=== PATIENT | female | born 1980 | race African-American/Black ===

== ENCOUNTER 2017-07-02 12:15 | Observation (INO) | payer OTHER ==
[2017-07-02] MEDS ORDERED: NS 1,000 ML IV ONE ×2 (12:49→12:55)
[2017-07-02] MEDS ORDERED: ONDANSETRON 4 MG/2 ML VIAL IVP ONE ×2 (12:49→17:08)
--- NOTE | 2017-07-02 12:56 | EDPHY ---
H & P Stated Complaint: seen last night dx with gastritis, Nause and abd pain worse Time Seen by Provider: 07/02/17 12:52 HPI/ROS: CHIEF COMPLAINT: Worsening abdominal pain, nausea and vomiting HISTORY OF PRESENT ILLNESS: The patient presents the ED with worsening abdominal pain and intractable vomiting. The patient was seen in the emergency department last night. She had a workup included a noncontrast CT scan of the abdomen pelvis and laboratory studies which are unremarkable. The working diagnosis yesterday was gastritis/gastroenteritis. She was discharged home with a prescription for Zofran. She reports she has had ongoing vomiting not alleviated with Zofran. She continues to complain of moderate left upper quadrant epigastric pain. She denies fever, cough or congestion. She denies dysuria. Her past surgical history was significant for hemorrhoidectomy. REVIEW OF SYSTEMS: A comprehensive 10 point review of systems is otherwise negative aside from elements mentioned in the history of present illness. Source: Patient - Personal History LMP (Females 10-55): 22-28 Days Ago Current Tetanus Diphtheria and Acellular Pertussis (TDAP): Unsure - Medical/Surgical History Hx Asthma: No Hx Chronic Respiratory Disease: No Hx Diabetes: No Hx Cardiac Disease: No Hx Renal Disease: No Hx Cirrhosis: No Hx Alcoholism: No Hx HIV/AIDS: No Hx Splenectomy or Spleen Trauma: No Other PMH: Degenerative disc disease L1 to S3 - Social History Smoking Status: Never smoked - Physical Exam Exam: General Appearance: Alert, mild discomfort secondary to pain Eyes: Pupils equal and round no pallor or injection ENT, Mouth: Mucous membranes moist Respiratory: There are no retractions, lungs are clear to auscultation Cardiovascular: Regular rate and rhythm Gastrointestinal: Tenderness to palpation epigastrium and left upper quadrant Neurological: A&O, normal motor function, normal sensory exam, normal cranial nerves Skin: Warm and dry, no rashes Musculoskeletal: Neck is supple nontender Extremities: symmetrical, full range of motion Constitutional: Initial Vital Signs Temperature (C) 37.2 C 07/02/17 12:27 Heart Rate 75 07/02/17 12:27 Respiratory Rate 20 07/02/17 12:27 Blood Pressure 140/96 H 07/02/17 12:27 O2 Sat (%) 100 07/02/17 12:27 O2 Delivery Mode Room Air Allergies/Adverse Reactions: shellfish Allergy (Severe, Uncoded 06/10/14 09:04) Home Medications: Medication Instructions Recorded Pregabalin [Lyrica 50mg (RX)] 50 mg PO BID 06/10/14 traMADol [Ultram] 50 mg PO Q4 06/10/14 Ondansetron Odt [Zofran Odt] 4 mg PO Q4PRN PRN #20 tab 07/01/17 Medical Decision Making - Diagnostics Imaging Results: Imaging Impressions Abdomen CT 07/02/17 13:03 Impression: 1. Nonspecific 19 mm left adnexal cyst if clinically indicated pelvic ultrasound may be helpful. 2. Prominent enhancement of the sigmoid colon vasa recta. This could potentially indicate colitis. Is there any diarrhea or hematochezia? Results called and discussed with Akil Collins, at 07/02/2017 15:00 General information for patients regarding this examination can be found at [email or web address]. If you have questions or comments about this report, please contact me at [phone] (hospital) or [phone] (cell). ED Course/Re-evaluation: The patient presents to the ED with intractable vomiting and ongoing left upper quadrant pain. The patient had an IV established. She has a history of shellfish allergy and a mild reaction to contrast in the past which she described as nausea. The patient was premedicated with Benadryl. She received Solu-Medrol. She received IV Ativan, Zofran and Phenergan for management of her nausea. The patient was taken for CT scan of the abdomen pelvis which demonstrates no acute perforation or obstruction. She does have some questionable mild colitis noted in her sigmoid which does not correspond particularly to her area of tenderness. The patient was re-evaluated at 4:40 p.m.. She has continued to complain of ongoing nausea. Her vomiting is better. She is having ongoing abdominal pain. Given the persistence and severity of her symptoms I do feel she needs to be admitted to the hospital for IV fluid hydration and symptomatic management. Consultation was made with Dr. Singh at 4:45 p.m. from the hospitalist service. He will admit the patient. Differential Diagnosis: Differential diagnosis considered includes diverticulitis, perforation, obstruction, pancreatitis, peptic ulcer disease, gastroenteritis - Data Points Laboratory Results: Laboratory Results 07/02/17 12:48 07/02/17 12:48 07/02/17 07/02/17 12:48 12:48 WBC 5.24 10^3/uL 10^3/uL (3.80-9.50) RBC 4.58 10^6/uL 10^6/uL (4.18-5.33) Hgb 11.6 g/dL L g/dL (12.6-16.3) Hct 36.5 % L % (38.0-47.0) MCV 79.7 fL L fL (81.5-99.8) MCH 25.3 pg L pg (27.9-34.1) MCHC 31.8 g/dL L g/dL (32.4-36.7) RDW 16.2 % H % (11.5-15.2) Plt Count 303 10^3/uL 10^3/uL (150-400) MPV 11.0 fL fL (8.7-11.7) Neut % (Auto) 79.5 % H % (39.3-74.2) Lymph % (Auto) 14.5 % L % (15.0-45.0) [place] % (Auto) 5.0 % % (4.5-13.0) Eos % (Auto) 0.0 % L % (0.6-7.6) Baso % (Auto) 0.8 % % (0.3-1.7) Nucleat RBC Rel Count 0.0 % % (0.0-0.2) Absolute Neuts (auto) 4.17 10^3/uL 10^3/uL (1.70-6.50) Absolute Lymphs (auto) 0.76 10^3/uL L 10^3/uL (1.00-3.00) Absolute Monos (auto) 0.26 10^3/uL L 10^3/uL (0.30-0.80) Absolute Eos (auto) 0.00 10^3/uL L 10^3/uL (0.03-0.40) Absolute Basos (auto) 0.04 10^3/uL 10^3/uL (0.02-0.10) Absolute Nucleated RBC 0.00 10^3/uL 10^3/uL (0-0.01) Immature Gran % 0.2 % % (0.0-1.1) Immature Gran # 0.01 10^3/uL 10^3/uL (0.00-0.10) Sodium 142 mEq/L mEq/L (134-144) Potassium 3.5 mEq/L mEq/L (3.5-5.2) Chloride 105 mEq/L mEq/L (97-110) Carbon Dioxide 22 mEq/l mEq/l (22-31) Anion Gap 15 mEq/L mEq/L (8-16) BUN 8 mg/dL mg/dL (7-23) Creatinine 0.8 mg/dL mg/dL (0.6-1.0) Estimated GFR > 60 Glucose 106 mg/dL H mg/dL (70-100) Calcium 9.9 mg/dL mg/dL (8.5-10.4) Total Bilirubin 0.3 mg/dL D mg/dL (0.1-1.4) Conjugated Bilirubin 0.1 mg/dL mg/dL (0.0-0.5) Unconjugated Bilirubin 0.2 mg/dL mg/dL (0.0-1.1) AST 20 IU/L IU/L (14-46) ALT 28 IU/L IU/L (9-52) Alkaline Phosphatase 50 IU/L IU/L (38-126) Total Protein 8.0 g/dL g/dL (6.3-8.2) Albumin 4.8 g/dL g/dL (3.5-5.0) Lipase 135 IU/L IU/L (23-300) Medications Given: Discontinued Medications Diphenhydramine HCl (Benadryl Injection) 50 mg IVP EDNOW ONE Stop: 07/02/17 12:59 Last Admin: 07/02/17 13:20 Dose: 50 mg Sodium Chloride (Ns) 1,000 mls @ 0 mls/hr IV ONCE ONE PRN Reason: Wide Open Stop: 07/02/17 12:50 Last Admin: 07/02/17 12:52 Dose: 1,000 mls Sodium Chloride (Ns) 1,000 mls @ 0 mls/hr IV EDNOW ONE; Wide Open PRN Reason: Protocol Stop: 07/02/17 12:56 Last Admin: 07/02/17 13:19 Dose: 1,000 mls Lorazepam (Ativan Injection) 1 mg IVP EDNOW ONE Stop: 07/02/17 13:08 Last Admin: 07/02/17 13:20 Dose: 1 mg Methylprednisolone Sodium Succinate (Solu-Medrol) 125 mg IVP EDNOW ONE Stop: 07/02/17 13:00 Last Admin: 07/02/17 13:20 Dose: 125 mg Ondansetron HCl (Zofran) 4 mg IVP EDNOW ONE Stop: 07/02/17 12:50 Last Admin: 07/02/17 12:52 Dose: 4 mg Promethazine HCl (Phenergan) 12.5 mg IVP EDNOW ONE Stop: 07/02/17 13:36 Last Admin: 07/02/17 13:41 Dose: 12.5 mg Departure - Departure Disposition: [facility] Inpatient Acute Clinical Impression: Abdominal pain, Vomiting Condition: Good Referrals: Lauren Gustafson MD [Primary Care Provider] - As per Instructions
[2017-07-02] MEDS ORDERED: methylPREDNISolone SOD SUCC 125 MG/2 ML VIAL IVP ONE (12:59)
[2017-07-02 13:01] LABS: % IMMATURE GRANULYOCYTES 0.2 % (0.0-1.1); ABSOLUTE IMMATURE GRANULOCYTES 0.01 10^3/uL (0.00-0.10); ADD DIFF? NO; ADD MORPH? NO; ADD SCAN? NO; ATYPICAL LYMPHOCYTE FLAG 0 (0-99); FRAGMENT RBC FLAG 20 (0-99); HEMATOCRIT 36.5 % (38.0-47.0); HEMOGLOBIN 11.6 g/dL (12.6-16.3); LEFT SHIFT FLG 0 (0-99); LIPEMIA HEMOLYSIS FLAG 80 (0-99); MEAN CELL HEMOGLOBIN 25.3 pg (27.9-34.1); MEAN CELL HEMOGLOBIN CONCENTR. 31.8 g/dL (32.4-36.7); MEAN CELL VOLUME 79.7 fL (81.5-99.8); PLATELET CLUMPS FLAG 0 (0-99); PLATELET COUNT 303 10^3/uL (150-400); RED BLOOD CELL COUNT 4.58 10^6/uL (4.18-5.33); RED CELL DISTRIBUTION WIDTH 16.2 % (11.5-15.2)
[2017-07-02] MEDS ORDERED: LORazepam 2 MG/ML INJ IVP ONE (13:07)
[2017-07-02 13:13] LABS: ALANINE AMINOTRANSFERASE 28 IU/L (9-52); ALBUMIN 4.8 g/dL (3.5-5.0); ALKALINE PHOSPHATASE 50 IU/L (38-126); ANION GAP 15 mEq/L (8-16); ASPARTATE AMINOTRANSFERASE 20 IU/L (14-46); BILIRUBIN,TOTAL 0.3 mg/dL (0.1-1.4); BILIRUBIN-CONJUGATED 0.1 mg/dL (0.0-0.5); BILIRUBIN-UNCONJUGATED 0.2 mg/dL (0.0-1.1); CALCIUM 9.9 mg/dL (8.5-10.4); CARBON DIOXIDE 22 mEq/l (22-31); CHLORIDE 105 mEq/L (97-110); CREATININE 0.8 mg/dL (0.6-1.0); GLOMERULAR FILTRATION RATE > 60; GLUCOSE 106 mg/dL (70-100); POTASSIUM 3.5 mEq/L (3.5-5.2); SODIUM 142 mEq/L (134-144)
[2017-07-02] MEDS ORDERED: PROMETHAZINE HCL 25 MG/ML INJ IVP ONE (13:35)
[2017-07-02] MEDS ORDERED: IOPAMIDOL (ISOVUE-300) 100 ML BTL ONE (13:50)
[2017-07-02] MEDS ORDERED: ONDANSETRON DISINTEGRATING 4 MG TAB PO PRN (17:25)
[2017-07-02] MEDS ORDERED: ACETAMINOPHEN 325 MG TAB PO PRN (17:25)
[2017-07-02] MEDS ORDERED: LORazepam 0.5 MG TAB PO PRN (17:25)
[2017-07-02] MEDS ORDERED: ONDANSETRON 4 MG/2 ML VIAL IVP PRN (17:25)
[2017-07-02] MEDS: NS W/ 20 KCl/L 1,000 ML IV SCH (18:07)
[2017-07-02] MEDS: PROMETHAZINE HCL 25 MG/ML INJ IVP PRN (19:56)
[2017-07-02] MEDS ORDERED: traMADol 50 MG TAB PO PRN (20:24)
[2017-07-02] MEDS: HYDROmorphone HCL/NS/PF 0.4 MG/2 ML SYR IVP PRN (20:29)
--- NOTE | 2017-07-02 21:10 | GHP ---
[f rep st] HISTORY AND PHYSICAL DATE OF ADMISSION: 07/02/2017 CHIEF COMPLAINT: Diarrhea, nausea, vomiting. HISTORY OF PRESENT ILLNESS: The patient is a 37-year-old female with past medical history of chronic low back pain who presented on 2 occasions to the [facility] emergency room with com plaints of diarrhea, nausea, and vomiting. Her primary complaint is the nausea and vomiting as the d iarrhea, she states, has resolved, and she has not had a bowel movement in the past 24 hours. She wa s prescribed Zofran which has not helped her nausea or vomiting. She has associated fevers and chill s as well. She states the symptoms started about 48 hours ago. Her daughter has also had nausea and vomiting as well but no diarrhea. The patient has not been on any antibiotics recently other than w hat was administered for hemorrhoid surgery she had earlier this month. She has not traveled out of the country over the past 2-3 months, but states she was in [facility] for a couple of months over the summer time. She does state that her children had a singing event and, after the event, there wa s some food available where she had some fruit and vegetables. She stated after she ingested these s he started to have the above-listed symptoms. Yesterday, she had a CT scan of her abdomen without co ntrast as she has a listed allergy to shellfish. This showed a small amount of nonspecific free flui d in the pelvis. This evening she had a CT scan with contrast, but was pretreated for her allergy. This showed enhancement of the sigmoid colon, which could indicate colitis. There was no evidence of diverticulosis or diverticulitis seen. The gallbladder was noted to be normal without any biliary d uct dilatation. No free air was seen. No evidence of a small bowel obstruction noted either. I sujata schroeder also mention that there was no blood seen within the stools. PAST MEDICAL HISTORY: Chronic low back pain secondary to degenerative disk disease. PAST SURGICAL HISTORY: Toe surgery when she was a teenager and recent hemorrhoid surgery. MEDICATIONS: 1. Lyrica. 2. Tramadol. 3. Zanaflex, dosing unconfirmed at the current time. ALLERGIES: Shellfish. SOCIAL HISTORY: The patient is . She has 3 children. She is a nonsmoker. FAMILY HISTORY: Dad is . He from chronic kidney disease. Mother is currently living b ut has history of heart disease. REVIEW OF SYMPTOMS: CONSTITUTIONAL: Positive for subjective fevers and chills. ENT: No recent upp er respiratory illnesses. CARDIOVASCULAR: No complaints of chest pains, palpitations, or syncopal e pisodes. RESPIRATORY: No complaints of shortness of breath or productive cough. : No complaints of difficulty with urination or burning with urination. NEUROLOGIC: No complaints of headaches or focal weakness. HEMATOLOGIC: No history of deep vein thrombosis or pulmonary embolism. PSYCHIATRIC : No history of anxiety or depression. ENDOCRINE: No history of diabetes or hypothyroidism. SKIN: No concerning skin rashes. MUSCULOSKELETAL: No complaints of any focal joint pains or swelling. PHYSICAL EXAM: VITAL SIGNS: Temperature 37.2, blood pressure 140/96, heart rate 113, respirations 2 0, satting 98% on room air. GENERAL: Patient appears mildly distressed. She is conversant, but mil dly distressed secondary to abdominal discomfort. HEENT: Extraocular movements intact. Pupils equa l. No scleral icterus is noted. NECK: No thyroid enlargement appreciated. CHEST: Clear on auscul tation. Normal respiratory effort. HEART: Regular. No murmurs appreciated. ABDOMEN: Tender at t he epigastrium with palpation. Bowel sounds are normal. Nondistended. : No Calderon catheter in pl anshul. EXTREMITIES: No significant pitting edema. NEUROLOGIC: Cranial nerves 2-12 appear intact. LABS: White blood cell count 5, hemoglobin 11, platelets 303. Sodium is 142, potassium 3.5, chlorid e 105, bicarb 22, BUN 8, creatinine 0.8, glucose of 106. Liver function tests within normal limits. IMAGING: CT scan abdomen and pelvis with contrast showing nonspecific 19 mm left adnexal cyst. If c linically indicated, pelvic ultrasound may be helpful, prominent enhancement of the sigmoid colon vas a recta. This could potentially indicate colitis. Is there any diarrhea or hematochezia? ASSESSMENT/PLAN: 1. Nausea and vomiting, presuming infectious source considering the concurrent diarrhea. She has no t had adequate relief with Zofran at this point in time. We will try Phenergan, continue with IV flu ids, and reassess in the morning. 2. Diarrhea. This has now resolved, but suspicious for an infectious presentation, and we will orde r for a GI pathogen panel should she, in fact, have any more diarrhea to see if we can isolate an inf ectious cause. The diarrhea has been nonbloody. 3. Chronic low back pain. We will include for p.r.n. tramadol for now if she is able to tolerate. 4. Deep venous thrombosis prophylaxis: Lovenox. 5. Disposition: I am hopeful her symptoms will be time limited. We will admit her under observatio n status. /[id number]/MODL
[2017-07-03] MEDS: HYDROmorphone HCL/NS/PF 0.4 MG/2 ML SYR IVP PRN ×4 (00:34→14:16)
[2017-07-03] MEDS: NS W/ 20 KCl/L 1,000 ML IV SCH (02:15)
[2017-07-03] MEDS: PROMETHAZINE HCL 25 MG/ML INJ IVP PRN ×2 (02:30→10:14)
[2017-07-03 04:35] VITALS: O2SAT 96
[2017-07-03 05:34] LABS: % IMMATURE GRANULYOCYTES 0.2 % (0.0-1.1); ABSOLUTE IMMATURE GRANULOCYTES 0.01 10^3/uL (0.00-0.10); ADD DIFF? NO; ADD MORPH? NO; ADD SCAN? NO; ATYPICAL LYMPHOCYTE FLAG 10 (0-99); FRAGMENT RBC FLAG 20 (0-99); HEMATOCRIT 28.3 % (38.0-47.0); HEMOGLOBIN 8.7 g/dL (12.6-16.3); LEFT SHIFT FLG 0 (0-99); LIPEMIA HEMOLYSIS FLAG 80 (0-99); MEAN CELL HEMOGLOBIN 24.2 pg (27.9-34.1); MEAN CELL HEMOGLOBIN CONCENTR. 30.7 g/dL (32.4-36.7); MEAN CELL VOLUME 78.6 fL (81.5-99.8); MEAN PLATELET VOLUME 10.9 fL (8.7-11.7); PLATELET CLUMPS FLAG 0 (0-99); PLATELET COUNT 234 10^3/uL (150-400); RED CELL DISTRIBUTION WIDTH 16.2 % (11.5-15.2)
[2017-07-03 05:46] LABS: ALANINE AMINOTRANSFERASE 26 IU/L (9-52); ALBUMIN 2.8 g/dL (3.5-5.0); ALKALINE PHOSPHATASE 32 IU/L (38-126); ANION GAP 9 mEq/L (8-16); ASPARTATE AMINOTRANSFERASE 12 IU/L (14-46); BILIRUBIN,TOTAL 0.1 mg/dL (0.1-1.4); CALCIUM 8.8 mg/dL (8.5-10.4); CARBON DIOXIDE 20 mEq/l (22-31); CHLORIDE 113 mEq/L (97-110); CREATININE 0.8 mg/dL (0.6-1.0); GLOMERULAR FILTRATION RATE > 60; GLUCOSE 88 mg/dL (70-100); MAGNESIUM 1.9 mg/dL (1.6-2.3); POTASSIUM 3.8 mEq/L (3.5-5.2); SODIUM 142 mEq/L (134-144); TOTAL PROTEIN 5.1 g/dL (6.3-8.2)
[2017-07-03] MEDS ORDERED: NON-FORMULARY NEW DRUG (Tizanidine Hcl [Zanaflex] 4 MG) PO PRN (07:44)
--- NOTE | 2017-07-03 08:26 | HOSPPROG ---
Hospitalist Progress Note Assessment/Plan: Patient is a 37-year-old female with a history of chronic low back pain. She has presented on 2 occasions to [facility] with complaints of diarrhea, nausea and vomiting. She had a CT scan of her abdomen without contrast this showed nonspecific free fluid in the pelvis. Subsequently she had a CT scan with contrast and was pretreated for allergy. This showed enhancement of the sigmoid colon which could indicate colitis. Today is my 1st encounter with the patient. Chart reviewed. * nausea and vomiting and diarrhea -supportive care at this time -GI pathogen ordered but has had no further diarrhea * chronic low back pain -P.r.n. tramadol * anemia -she had a drop in her hemoglobin hematocrit but it could possibly be delusional -recheck -patient states she has had ongoing anemia for years * 19 mm left adnexal cyst -she get followup in the outpatient setting and evaluation via a pelvic ultrasound *Plan: trial of clear liquids after evaluation of her h/h, if stable, will dc home Subjective: Hillary is feeling much better during my evaluation Objective: Vital Signs Temp Pulse Resp BP Pulse Ox 37.0 C 68 14 99/58 L 96 07/03/17 07:24 07/03/17 07:24 07/03/17 07:24 07/03/17 07:24 07/03/17 07:24 Laboratory Results 07/03/17 05:11 07/03/17 05:11 07/02/17 07/03/17 07/04/17 05:59 05:59 05:59 Intake Total 2000 Output Total 800 Balance 1200 - Physical Exam Constitutional: no apparent distress, appears nourished, not in pain Eyes: PERRL Ears, Nose, Mouth, Throat: hearing normal Cardiovascular: regular rate and rhythym Respiratory: no respiratory distress Gastrointestinal: normoactive bowel sounds, soft, non-tender abdomen Skin: warm, normal color Musculoskeletal: full muscle strength Neurologic: AAOx3 Psychiatric: interacting appropriately ICD10 Worksheet Patient Problems: Problems Problem Status Onset Abdominal pain Acute Vomiting Acute
[2017-07-03] MEDS ORDERED: PREGABALIN 150 MG CAP PO SCH (09:00)
[2017-07-03] MEDS ORDERED: ENOXAPARIN 40 MG/0.4 ML SYR SC SCH (09:00)
[2017-07-03 10:58] LABS: HEMOGLOBIN 9.3 g/dL (12.6-16.3)
[2017-07-03 11:06] VITALS: BP 106/71; PULSE 71; RESP 16; TEMP 98.1
[2017-07-03] MEDS ORDERED: PANTOPRAZOLE SODIUM 40 MG TAB PO SCH (11:45)
--- NOTE | 2017-07-03 16:17 | GDS ---
[f rep st] DISCHARGE SUMMARY DISCHARGE DIAGNOSES: 1. Nausea and vomiting with associated diarrhea. 2. Chronic low back pain. 3. Anemia. 4. A 9 mm left adnexal cyst. HISTORY OF PRESENT ILLNESS: The patient is a 37-year-old female, with a history of chronic low back pain. She presented on 2 different occasions to [facility] with complaints of diarrhea, nausea and vomiting. She had a CT scan of her abdomen without contrast, which showed nonspecific free fluid in the pelvis. Subsequently, she had a CT scan with contrast and was pretreated for the allergy. This showed enhancement of the sigmoid colon, which could indicate colitis. She improved throughout her stay, is tolerating clear liquids. She will be discharged home to follow up with her primary care provider. HOSPITAL COURSE: 1. Nausea and vomiting with associated diarrhea. She was given supportive care with IV fluids. A GI pathogen study was ordered, but she has had no further diarrhea. She has had no further nausea or vomiting. She is tolerating clear liquids. She is going to try a BRAT diet prior to discharge. 2. Chronic low back pain. Continue tramadol. 3. Anemia. She had a drop in her hemoglobin and hematocrit, rechecked, and was likely to be dilutional. We will have her follow up with this with her primary care. She said this has been going on for many years. 4. A 9 mm left adnexal cyst. Further follow up with Dr. Gustafson. DISCHARGE CONDITION: Stable. Blood pressure is 106/71, heart rate 71, respiratory rate 16, O2 saturation on room air 96%, temperature 36.7 Celsius. MEDICATIONS AT DISCHARGE: Please see the MAR. DISCHARGE INSTRUCTIONS: 1. To follow up with Dr. Gustafson in regard to her anemia. 2. To try Protonix for the next 2 weeks. She has had on and off epigastric pain. 3. Recommending a hot water bottle to help with her bouts of nausea. 4. To get further evaluation in regard to her cystic lesion. /[id number]/MODL MTDD
--- NOTE | 2017-07-05 10:12 | ASDISCHSUM ---
Discharge Information Plan Status:Home with No Needs Medically Cleared to Leave: Discharge Date:07/03/2017 02:30 PM CM D/C Disposition:Home, Routine, Self-Care ADT D/C Disposition:Home, Routine, Self-Care Projected Discharge Date:07/03/2017 02:30 PM Transportation at D/C:Family Discharge Delay Reason: Follow-Up Date:07/03/2017 02:30 PM Discharge Slot: Final Diagnosis: Placement Information Patient Contact Information Contact Name:JOSE Relationship: Address:[address] City:[place] Alternate Phone: [facility]/Zip Code:[place] [address] Email: Financial Information Financial Class:Medicare Advantage Plans Primary Plan Desc:GABRIELLEMatti SRIKANTH PPO MEDICARE Primary Plan Number:[id number] Secondary Plan Desc:[employer] PPO HMO OPEN ACC LOCAL Secondary Plan Number:[id number] Assessment Information Intervention Information
== END 2017-07-03 14:30 | disposition home or self-care (01) ==
LOC: F3E 17:16
PROVIDERS: ADMIT Internal Medicine; ATTEND Internal Medicine
DX: R11.2 Nausea with vomiting, unspecified (principal); R19.7 Diarrhea, unspecified; M51.87 Other intervertebral disc disorders, lumbosacral region; M54.5 Low back pain; N83.202 Unspecified ovarian cyst, left side; D64.9 Anemia, unspecified
CPT/HCPCS: 74177; G0378; J1170; J1200; J1650; J2060; J2405; J2550; J2930; Q9967; 96374